=== PATIENT | male | born 1985 | race Caucasian/White ===

== ENCOUNTER 2021-06-01 19:20 | Emergency (ER) | payer OTHER ==
[2021-06-01] MEDS ORDERED: Boostrix 0.5 ML (Tdap) VIAL ONE (19:36)
[2021-06-02 00:48] LABS: HIV (1/2) Antibody/Antigen Non-Reactive (NonReactive); HIV 1/2 INDEX 0.06 S/CO (<1.00); Hep C IgG Ab Non-Reactive (NonReactive); Hep C Index 0.18 S/CO (0-0.79)
[2021-06-02 01:29] LABS: HBSAB Concentration 492.07 mIU/mL; Hep B Surf AB Reactive (NonReactive)
== END 2021-06-01 19:54 | disposition home or self-care (01) ==
LOC: ERS 19:20
DX: S61.212A Laceration without foreign body of right middle finger without damage to nail, initial encounter (principal); Z77.21 Contact with and (suspected) exposure to potentially hazardous body fluids; X58.XXXA Exposure to other specified factors, initial encounter
CPT/HCPCS: 36415; 86706; 86803; 87389; 90471; 90715